=== PATIENT | female | born 1960 | race Caucasian/White ===

== ENCOUNTER → 2024-05-06 13:24 | Outpatient (REF) | payer BC, SELFPAY | LOC: WDC 13:24 | PROVIDERS: ATTENDING PHYSICIAN Obstetrics & Gynecology; FAMILY PHYSICIAN Family Medicine | DX: Z12.31 Encounter for screening mammogram for malignant neoplasm of breast (principal) | CPT/HCPCS: 77063; 77067 ==

== ENCOUNTER → 2024-09-22 08:15 | Outpatient (REF) | payer BC, SELFPAY | LOC: HWRAD 08:15 | PROVIDERS: ATTENDING PHYSICIAN Obstetrics & Gynecology; FAMILY PHYSICIAN Family Medicine | DX: Z78.0 Asymptomatic menopausal state (principal) | CPT/HCPCS: 77080 ==

== ENCOUNTER → 2024-12-22 08:50 | Outpatient (REF) | payer BC, SELFPAY | LOC: REG 08:50 | PROVIDERS: ATTENDING PHYSICIAN Internal Medicine Rheumatology; FAMILY PHYSICIAN Obstetrics & Gynecology | DX: M25.551 Pain in right hip (principal); M25.552 Pain in left hip | CPT/HCPCS: 73523 ==

== ENCOUNTER → 2025-05-07 14:36 | Outpatient (REF) | payer BC, SELFPAY | LOC: WDC 14:36 | PROVIDERS: ATTENDING PHYSICIAN Obstetrics & Gynecology; FAMILY PHYSICIAN Family Medicine | DX: Z12.31 Encounter for screening mammogram for malignant neoplasm of breast (principal) | CPT/HCPCS: 77063; 77067 ==